=== PATIENT | female | born 1965 | race Caucasian/White ===

== ENCOUNTER 2018-09-24 21:00 | Emergency (ER) | payer BC ==
[~2018-09-24] VITALS: Ht 162.6 cm; Wt 98.6 kg
[2018-09-25 00:19] VITALS: BP 152/88
== END 2018-09-25 00:40 | disposition home or self-care (01) | DRG 605 ==
LOC: ED 21:00
DX: S00.83XA Contusion of other part of head, initial encounter (principal); S00.531A Contusion of lip, initial encounter; S00.81XA Abrasion of other part of head, initial encounter; S00.511A Abrasion of lip, initial encounter; W01.198A Fall on same level from slipping, tripping and stumbling with subsequent striking against other object, initial encounter; Y93.E9 Activity, other interior property and clothing maintenance; Y92.009 Unspecified place in unspecified non-institutional (private) residence as the place of occurrence of the external cause